=== PATIENT | male | born 1965 | race Caucasian/White ===

== ENCOUNTER 2022-12-13 12:59 | Emergency (ER) | payer OTHER ==
[2022-12-13 14:14] LABS: Absolute Lymphocytes (CBC) 1.5 K/uL (0.7-4.9); Hematocrit 40.6 % (39.6-49.0); Lymphocytes % 12.6 % (15.3-44.8); MCV 93.5 fL (80-100); MPV 8.2 fL (7.6-11.3); RBC Red Blood Cell Count 4.34 M/uL (4.33-5.43)
[2022-12-13 14:17] LABS: Protime INR 3.24
[2022-12-13 14:27] LABS: Potassium 3.9 mmol/L (3.5-5.1)
--- NOTE | 2022-12-13 15:22 | RAD REPORT ---
EXAM DESCRIPTION: US - Extremity Venous Uni Ltd - 12/13/2022 2:56 pm CLINICAL HISTORY: Pain COMPARISON: None. TECHNIQUE: Real-time sonographic evaluation of the right lower extremity deep venous systems was per formed. FINDINGS: Normal compressibility, flow augmentation, phasic flow and spontaneous flow are identified in the right lower extremity common femoral, superficial femoral, popliteal and posterior tibial vei ns. No intraluminal filling defects seen. In the upper right thigh area of bruising there is an approximately 5 millimeter oval heterogeneous h ypoechoic mass present approximately 2-cm the skin surface. This has the appearance of an aging hemat jameel IMPRESSION: No DVT in the right lower extremity. Approximately 5 centimeter sized hematoma in the upper thigh area of bruising.
--- NOTE | 2022-12-13 15:34 | EDPHYS ---
Physician Documentation [facility] Name: Zachary Lopez IV Age: 57 yrs Sex: Male : 1965 Arrival Date: 12/13/2022 Time: 13:07 Bed 14 Private MD: ED Physician Abhay Gurrola HPI: 12/13 13:22 This 57 yrs old Male presents to ER via Ambulatory with complaints of Leg Swelling, jh7 Thigh Pain. 13:22 Onset: The symptoms/episode began/occurred 2 day(s) ago. Associated signs and symptoms: jh7 Pertinent negatives: abdominal pain, chest pain, headache, shortness of breath. Patient reports that he developed right anterior thigh pain on Wednesday while at work. Denies any injury. Stated he noticed some bruising on his thigh this morning. He takes Plavix and Coumadin for a prior blockage in his heart. Denies any chest pain. Reports that his Coumadin levels were checked 1 week ago and were 2.5.. Historical: - Allergies: 13:22 No Known Allergies; ll1 - PMHx: 13:22 Hypertensive disorder; ll1 - PSHx: 13:22 2 cardiac stents; ll1 - Immunization history:: Client reports having NOT received the Covid vaccine. - Social history:: Smoking status: Patient denies any tobacco usage or history of. ROS: 13:22 Constitutional: Negative for fever, chills, and weight loss, Neck: Negative for injury, jh7 pain, and swelling, Cardiovascular: Negative for chest pain, palpitations, and edema, Respiratory: Negative for shortness of breath, cough, wheezing, and pleuritic chest pain, Abdomen/GI: Negative for abdominal pain, nausea, vomiting, diarrhea, and constipation, Skin: Negative for injury, rash, and discoloration, Neuro: Negative for headache, weakness, numbness, tingling, and seizure. 13:22 MS/extremity: Positive for ecchymosis, pain, of the right leg. 13:22 All other systems are negative. Exam: 13:22 Constitutional: This is a well developed, well nourished patient who is awake, alert, jh7 and in no acute distress. Head/Face: Normocephalic, atraumatic. Eyes: Pupils equal round and reactive to light, extra-ocular motions intact. Lids and lashes normal. Conjunctiva and sclera are non-icteric and not injected. Cornea within normal limits. Periorbital areas with no swelling, redness, or edema. Cardiovascular: Regular rate and rhythm with a normal S1 and S2. No gallops, murmurs, or rubs. Normal PMI, no JVD. No pulse deficits. Respiratory: Lungs have equal breath sounds bilaterally, clear to auscultation and percussion. No rales, rhonchi or wheezes noted. No increased work of breathing, no retractions or nasal flaring. Abdomen/GI: Soft, non-tender, with normal bowel sounds. No distension or tympany. No guarding or rebound. No evidence of tenderness throughout. Skin: Warm, dry with normal turgor. Normal color with no rashes, no lesions, and no evidence of cellulitis. Neuro: Awake and alert, GCS 15, oriented to person, place, time, and situation. Motor strength 5/5 in all extremities. Sensory grossly intact. Normal gait. 13:22 Musculoskeletal/extremity: ROM: intact in all extremities, Circulation is intact in all extremities. Pulses: are normal with no appreciated deficits, the right leg Sensation intact. Moderate bruising noted over the anterior thigh. Vital Signs: 13:20 BP 142 / 84; Pulse 84; Resp 17; Temp 98.9; Pulse Ox 99% ; Weight 117.48 kg; Height 6 ll1 ft. 3 in. (190.50 cm); Pain 8/10; 13:20 Body Mass Index 32.37 (117.48 kg, 190.50 cm) ll1 MDM: 13:10 Patient medically screened. [facility] 15:55 Differential diagnosis: DVT, contusion, hematoma, superficial venous thrombosis. Data [facility] reviewed: vital signs, nurses notes, radiologic studies, ultrasound. I considered the following discharge prescriptions or medication management in the emergency department Medications were administered in the Emergency Department. See MAR. Historians other than the Patient: Spouse/Significant Other: . Care significantly affected by the following chronic conditions: Hypertension, SC. Counseling: I had a detailed discussion with the patient and/or guardian regarding: the historical points, exam findings, and any diagnostic results supporting the discharge/admit diagnosis, to return to the emergency department if symptoms worsen or persist or if there are any questions or concerns that arise at home. Special discussion: Explained to the patient he had a hematoma in his left thigh. He reported that he felt that he may have strained a muscle. Advised them to compress and elevate his leg at home. Avoid ibuprofen due to being on blood thinners and use prescribed pain meds at home. Also inform them that his PTT was 35.6 and INR was 3.3 which is higher than his coper hand wanted. The patient's stated that they started him on Entresto 1 week ago and is wondering if it could possibly be interacting with his blood thinners. ER return precautions given and advised PCP follow-up.. 12/13 13:30 Order name: Basic Metabolic Panel; Complete Time: 14:34 [facility] 12/13 13:30 Order name: CBC with Diff; Complete Time: 14:34 [facility] 12/13 13:30 Order name: PT-INR; Complete Time: 14: [facility] 12/13 13:30 Order name: US Extremity Venous Unilateral Ltd; Complete Time: 15:25 [facility] 12/13 15:47 Order name: CXR XRAY 12/13 13:30 Order name: IV Saline Lock; Complete Time: 14:10 [facility] 12/13 13:30 Order name: Labs collected and sent; Complete Time: 14: [facility] 12/13 13:30 Order name: O2 Per Protocol; Complete Time: 14:34 [facility] 12/13 13:30 Order name: O2 Sat Monitoring; Complete Time: 14:34 [facility] Administered Medications: 15:30 Drug: HYDROcodone-acetaminophen 5 mg-325 mg 1 tabs Route: PO; bp 15:47 Follow up: Response: No adverse reaction bp 15:30 Drug: Ondansetron 4 mg Route: PO; bp 15:47 Follow up: Response: No adverse reaction bp Disposition: 17:12 Co-signature as Attending Physician, Abhay Gurrola MD I agree with the assessment and kdr plan of care. Disposition Summary: 12/13/22 15:33 Discharge Ordered Location: Home [facility] Problem: new [facility] Symptoms: are unchanged [facility] Condition: Stable 7 Diagnosis - Contusion of right thigh 7 Followup: [facility] - With: Private Physician - When: 2 - 3 days - Reason: Recheck today's complaints Discharge Instructions: - Discharge Summary Sheet 7 - Contusion jh7 - Hematoma [facility] Forms: - Medication Reconciliation Form 7 - Work release form iw - Thank You Letter jh7 - Prescription Opioid Use [facility] Prescriptions: - Tramadol 50 mg Oral Tablet - take 1 tablet by ORAL route every 8 hours as needed; 12 tablet; Refills: 0, jh7 Product Selection Permitted Signatures: Dispatcher [employer] Abhay Nash MD MD kdr Peltier, Brian, RN RN bp Jacques Toussaint RN RN 1 Maria Eugenia Elaine FNP [place] [id number] Corrections: (The following items were deleted from the chart) 13:22 13:22 PSHx: Coronary artery bypass graft; ll1 1
--- NOTE | 2022-12-13 15:34 | ER ---
Nurse's Notes [facility] Name: Zachary Lopez IV Age: 57 yrs Sex: Male : 1965 Arrival Date: 12/13/2022 Time: 13:07 Bed 14 Private MD: Diagnosis: Contusion of right thigh Presentation: 12/13 13:20 Chief complaint: Patient states: R thigh upper leg pain started Wednesday. + swelling and ll1 bruising. No known trauma. Coronavirus screen: Vaccine status: Patient reports being unvaccinated. Client denies travel out of the [place] in the last 14 days. At this time, the client does not indicate any symptoms associated with coronavirus-19. Ebola Screen: Patient denies travel to an Ebola-affected area in the 21 days before illness onset. Initial Sepsis Screen: Does the patient meet any 2 criteria? No. Patient's initial sepsis screen is negative. Does the patient have a suspected source of infection? Yes: Bone or joint infection. Risk Assessment: Do you want to hurt yourself or someone else? Patient reports no desire to harm self or others. Onset of symptoms was December 11, 2022. 13:20 Method Of Arrival: Ambulatory ll1 13:20 Acuity: SOLOMON 3 ll1 Triage Assessment: 15:15 General: Appears in no apparent distress. uncomfortable, Behavior is cooperative, bp appropriate for age, anxious. Pain: Complains of pain in right leg. EENT: No deficits noted. Neuro: No deficits noted. Cardiovascular: No deficits noted. Respiratory: No deficits noted. GI: No signs and/or symptoms were reported involving the gastrointestinal system. : No signs and/or symptoms were reported regarding the genitourinary system. Derm: No deficits noted. Musculoskeletal: No deficits noted. Historical: - Allergies: 13:22 No Known Allergies; ll1 - PMHx: 13:22 Hypertensive disorder; ll1 - PSHx: 13:22 2 cardiac stents; ll1 - Immunization history:: Client reports having NOT received the Covid vaccine. - Social history:: Smoking status: Patient denies any tobacco usage or history of. Screenin:15 [facility] ED Fall Risk Assessment (Adult) History of falling in the last 3 months, bp including since admission No falls in past 3 months (0 pts). Abuse screen: Denies threats or abuse. Denies injuries from another. Nutritional screening: No deficits noted. Tuberculosis screening: No symptoms or risk factors identified. Assessment: 15:15 General: SEE TRIAGE NOTE. bp 15:56 Reassessment: PT DC HOME AMBULATORY WITH FAMILY. bp Vital Signs: 13:20 BP 142 / 84; Pulse 84; Resp 17; Temp 98.9; Pulse Ox 99% ; Weight 117.48 kg; Height 6 ll1 ft. 3 in. (190.50 cm); Pain 8/10; 13:20 Body Mass Index 32.37 (117.48 kg, 190.50 cm) ll1 ED Course: 13:07 Patient arrived in ED. as 13:10 [facility] Eug[facility] Elaine [facility] 13:10 Abhay Gurrola MD is Attending Physician. [facility] 13:22 Triage completed. ll1 13:22 Arm band placed on. ll1 14:10 Inserted saline lock: 20 gauge in left antecubital area, using aseptic technique. Blood kr3 collected. 14:58 US Extremity Venous Unilateral Ltd In Process Unspecified. EDMS 15:15 Patient has correct armband on for positive identification. Bed in low position. Call bp light in reach. Side rails up X2. 15:19 Abhilash Walsh, RN is Primary Nurse. bp 15:56 No provider procedures requiring assistance completed. IV discontinued, intact, bp bleeding controlled, No redness/swelling at site. Pressure dressing applied. 16:01 CXR XRAY In Process Unspecified. EDMS Administered Medications: 15:30 Drug: HYDROcodone-acetaminophen 5 mg-325 mg 1 tabs Route: PO; bp 15:47 Follow up: Response: No adverse reaction bp 15:30 Drug: Ondansetron 4 mg Route: PO; bp 15:47 Follow up: Response: No adverse reaction bp Medication: 15:56 VIS not applicable for this client. bp Outcome: 15:33 Discharge ordered by . [facility] 15:56 Discharged to home ambulatory. bp 15:56 Condition: stable 15:56 Discharge instructions given to patient, Instructed on discharge instructions, follow up and referral plans. medication usage, Demonstrated understanding of instructions, follow-up care, medications, Prescriptions given X 1. 15:57 Patient left the ED. bp Signatures: Dispatcher [employer] EDMS Kristi Roberts as Abhilash Walsh, RN RN bp Jacques Toussaint RN RN ll1 Maria Eugenia Elaine, FINISHED YARN EXAMINER FINISHED YARN EXAMINER jh7 Ethel Vazquez RN RN kr3 Corrections: (The following items were deleted from the chart) 13: 13:22 PSHx: Coronary artery bypass graft; ll1 ll1
[2022-12-13 16:09] VITALS: BP 142/84; TEMP 98.9; O2SAT 99
--- NOTE | 2022-12-13 16:16 | RAD REPORT ---
EXAM DESCRIPTION: RAD - Chest Single View - 12/13/2022 3:59 pm CLINICAL HISTORY: SOB COMPARISON: None TECHNIQUE: AP portable chest image was obtained 12/13/2022 3:59 pm . FINDINGS: Lungs are clear. Heart and vasculature are normal. No measurable pleural effusion and no p neumothorax. No acute bony abnormality seen. No acute aortic findings suspected. IMPRESSION: No acute cardiopulmonary process.
== END 2022-12-13 15:57 | disposition home or self-care (01) ==
LOC: ER 12:59
DX: S70.11XA Contusion of right thigh, initial encounter (principal)
CPT/HCPCS: 36415; 71045; 80048; 85025; 85610; 93971; 99284